=== PATIENT | female | born 1995 | race Caucasian/White ===

== ENCOUNTER 2022-05-19 07:35 | Emergency (ER) | payer MEDICAID, OTHER ==
[2022-05-19] MEDS ORDERED: Diazepam 10 MG/2 ML SYRINGE ONE (07:42)
[2022-05-19 08:19] LABS: #Monocytes 0.5 10x3/uL (0.0-1.1); #Neutrophils 8.8 10x3/uL (1.5-8.4); %Basophils 0.2 % (0.0-2.0); %Eosinophils 0.2 % (0.0-6.0); %Lymphocytes 8.6 % (18.0-47.0); %Monocytes 4.5 % (0.0-10.0); %Neutrophils 86.2 % (40.0-75.0); Hemoglobin 12.2 g/dL (12.0-15.5); Mean Corpuscular HGB CONC 35.6 g/dL (32.0-36.0); Mean Corpuscular Hemoglobin 31.9 pg (27.0-33.0); Mean Corpuscular Volume 89.6 fl (81.6-98.3); Mean Platelet Volume 10.3 fl (7.4-10.4); Platelet Count 171 10x3/uL (150-450); RBC Distribution Width 11.9 % (11.5-14.5); Red Blood Cell (RBC) Count 3.83 10x6/uL (3.90-5.03); White Blood Cell (WBC) Count 10.2 10x3/uL (3.5-10.5)
[2022-05-19] MEDS ORDERED: Morphine 4 MG/ML VIAL ONE (08:31)
[2022-05-19 08:33] LABS: ALT (SGPT) 11 U/L (8-55); AST (SGOT) 15 U/L (5-34); Alkaline Phosphatase 48 U/L (40-110); Anion Gap 14 mmol/L (10-20); BUN (Urea Nitrogen) 8 mg/dL (7.0-18.7); Bilirubin, Total 0.6 mg/dL (0.2-1.2); Calc. Creatinine Clearance 0 mL/min (70-130); Calcium 8.7 mg/dL (7.8-10.44); Carbon Dioxide 14 mmol/L (22-29); Chloride 111 mmol/L (98-107); Estimated GFR 110; Globulin 2.2 g/dL (2.4-3.5); Glucose 125 mg/dL (70-105); Potassium 3.5 mmol/L (3.5-5.1); Protein, Total 6.2 g/dL (6.0-8.3); Sodium 135 mmol/L (136-145)
[2022-05-19] MEDS ORDERED: Ketorolac Tromethamine 30 MG/ML VIAL ONE (09:57)
[2022-05-19] MEDS ORDERED: HYDROcodone/Acetaminophen 5/325 mg Tablet ONE (09:58)
== END 2022-05-19 11:44 | disposition home or self-care (01) ==
LOC: CSHERS 07:35
DX: O03.4 Incomplete spontaneous abortion without complication (principal); Z3A.01 Less than 8 weeks gestation of pregnancy
CPT/HCPCS: 36415; 76856; 80053; 84702; 85025; 86900; 86901; 96374; 96375; J1885; J2270; J3360